=== PATIENT | male | born 1965 | race Caucasian/White ===

== ENCOUNTER 2018-03-30 10:24 | Emergency (ER) | payer BC ==
[2018-03-30] MEDS ORDERED: Aspirin TAB* 325 MG PO ONE (10:51)
[2018-03-30] MEDS ORDERED: Fluticasone NASAL SPRAY 50MCG* 16 gm SPRAY BTL RIGHT NARE ONE (10:51)
[2018-03-30 11:16] LABS: ABS Basophils 0 10^3/ul (0-0.2); ABS Eosinophils 0 10^3/ul (0-0.6); ABS Monocytes 0.6 10^3/ul (0-0.8); ABS Neutrophils 3.4 10^3/ul (1.5-7.7); ABS Nucleated RBC 0 10^3/ul; Eosinophil % 0.3 % (0-6); Hematocrit 46 % (42-52); Hemoglobin 16.1 g/dl (14.0-18.0); Lymphocyte % 20.4 % (25-47); Mean Corpuscular HGB Conc 35 g/dl (31-36); Mean Corpuscular Hemoglobin 34 pg (27-31); Mean Corpuscular Volume 97 fL (80-94); Mean Platelet Volume 7.4 um3 (7.4-10.4); Nucleated Red Blood Cells % 0; Platelet Count 262 10^3/ul (150-450); Red Blood Count 4.76 10^6/ul (4.0-5.4); Red Cell Distribution Width 14 % (10.5-15)
[2018-03-30 11:33] LABS: EGFR Non-African American 101.9 (>60)
--- NOTE | 2018-03-30 12:24 | RAD ---
HISTORY: Chest pain COMPARISONS: None VIEWS: 1: frontal portable view of the chest at 11:40 AM FINDINGS: LINES AND TUBES: None. CARDIOMEDIASTINAL SILHOUETTE: The cardiomediastinal silhouette is normal for portable technique. PLEURA: The costophrenic angles are sharp. No pleural abnormalities are noted. LUNG PARENCHYMA: The lungs are clear. ABDOMEN: The upper abdomen is clear. There is no subphrenic gas. BONES AND SOFT TISSUES: No bone or soft tissue abnormalities are noted. IMPRESSION: NO ACTIVE CARDIOPULMONARY DISEASE.
--- NOTE | 2018-03-30 13:13 | ED ---
Ariel Rivers Jennifer, scribed for Hero Boone MD on 03/30/18 at 1039 . HPI Chest Pain - HPI Summary HPI Summary: The patient is a 53 year old male who presents with left-sided chest pain six months ago. The pain is constant and feels like a sharp needle. The patient denies the pain radiates anywhere. He states it has been hard to catch his breath when hes lying down for three months. The patient states the pain hasn t changed, but he decided to come to the ED today after his mom suggested it a few days ago. He denies abdominal pain and leg swelling. The patient additionally complains of a sinus infection that [employer] had for 10 years. The patient adds he was told he had a five-chamber heart when he was a teenager. - History of Current Complaint Chief Complaint: EDChestPainROMI Hx Obtained From: Patient Onset/Duration: Atraumatic, Still Present - Began about 6 months ago Timing: Constant Initial Severity: Mild Current Severity: None Pain Intensity: 0 Pain Scale Used: 0-10 Numeric Chest Pain Location: Left Anterior Chest Pain Radiates: No Character: Sharp/Stabbing Aggravating Factor(s): Position - Lying down worsens SOB Alleviating Factor(s): Nothing Associated Signs and Symptoms: Positive: Other: - chest pain, SOB - Allergy/Home Medications Allergies/Adverse Reactions: Allergies Allergy/AdvReac Type Severity Reaction Status Date / Time Penicillins Allergy Anaphylatic Verified 03/30/18 10:27 Shock Home Medications: Home Medications NK [No Home Medications Reported] 03/30/18 [History Confirmed 03/30/18] PMH/Surg Hx/FS Hx/Imm Hx Endocrine/Hematology History: Denies: Hx Diabetes, Other Endocrine/Hematological Disorders - Neg hx blood clots Cardiovascular History: Denies: Hx Hypertension Infectious Disease History: No Infectious Disease History: Denies: Hx Human Immunodeficiency Virus (HIV), Hx of Known/Suspected MRSA, Traveled Outside the [place] in Last 30 Days - Family History Known Family History: Positive: Other - Grandfather - stroke - Social History Alcohol Use: Daily Alcohol Amount: Few shots of rum every day Hx Tobacco Use: Yes Smoking Status (MU): Former Smoker Review of Systems ENT: Other - Sinus infection - 10 years Positive: Chest Pain Positive: Shortness Of Breath Negative: Abdominal Pain Negative: Edema All Other Systems Reviewed And Are Negative: Yes Physical Exam - Summary Physical Exam Summary: Appearance: Well-appearing, Well-nourished Skin: Warm Eyes: Normal ENT: Normal Neck: Supple, nontender Respiratory: Clear to auscultation Cardiovascular: Normal S1, S2. No murmurs. Normal distal pulses in tibial and radial bilaterally. Abdomen: Soft, nontender Musculoskeletal: Normal, Strength/ROM Intact Neurological: Normal, A&Ox3 Psychiatric: Normal General: No acute distress Triage Information Reviewed: Yes Vital Signs On Initial Exam: Initial Vitals Temp Pulse Resp BP Pulse Ox 97 F 73 16 155/105 98 03/30/18 10:27 03/30/18 10:27 03/30/18 10:27 03/30/18 10:27 03/30/18 10:27 Vital Signs Reviewed: Yes Diagnostics - Vital Signs Vital Signs Temp Pulse Resp BP Pulse Ox 03/30/18 10:27 97 F 73 16 155/105 98 - Laboratory Lab Results: Lab Results 03/30/18 03/30/18 03/30/18 Range/Units 11:03 11:03 11:03 WBC 5.0 (3.5-10.8) 10^3/ul RBC 4.76 (4.0-5.4) 10^6/ul Hgb 16.1 (14.0-18.0) g/dl Hct 46 (42-52) % MCV 97 H (80-94) fL MCH 34 H (27-31) pg MCHC 35 (31-36) g/dl RDW 14 (10.5-15) % Plt Count 262 (150-450) 10^3/ul MPV 7.4 (7.4-10.4) um3 Neut % (Auto) 66.9 (38-83) % Lymph % (Auto) 20.4 L (25-47) % Duchesne % (Auto) 11.6 H (0-7) % Eos % (Auto) 0.3 (0-6) % Baso % (Auto) 0.8 (0-2) % Absolute Neuts (auto) 3.4 (1.5-7.7) 10^3/ul Absolute Lymphs (auto) 1.0 (1.0-4.8) 10^3/ul Absolute Monos (auto) 0.6 (0-0.8) 10^3/ul Absolute Eos (auto) 0 (0-0.6) 10^3/ul Absolute Basos (auto) 0 (0-0.2) 10^3/ul Absolute Nucleated RBC 0 10^3/ul Nucleated RBC % 0 D-Dimer, Quantitative < 200 (Less Than 230) ng/mL Sodium 139 (139-145) mmol/L Potassium 4.0 (3.5-5.0) mmol/L Chloride 107 (101-111) mmol/L Carbon Dioxide 24 (22-32) mmol/L Anion Gap 8 (2-11) mmol/L BUN 17 (6-24) mg/dL Creatinine 0.80 (0.67-1.17) mg/dL Est GFR ( Amer) 131.1 (>60) Est GFR (Non-Af Amer) 101.9 (>60) BUN/Creatinine Ratio 21.3 H (8-20) Glucose 90 (70-100) mg/dL Calcium 9.4 (8.6-10.3) mg/dL Magnesium 2.0 (1.9-2.7) mg/dL Total Bilirubin 0.70 (0.2-1.0) mg/dL AST 18 (13-39) U/L ALT 12 (7-52) U/L Alkaline Phosphatase 91 (34-104) U/L Troponin I 0.00 (<0.04) ng/mL Total Protein 7.0 (6.4-8.9) g/dL Albumin 4.2 (3.2-5.2) g/dL Globulin 2.8 (2-4) g/dL Albumin/Globulin Ratio 1.5 (1-3) Result Diagrams: 03/30/18 11:03 03/30/18 11:03 Lab Statement: Any lab studies that have been ordered have been reviewed, and results considered in the medical decision making process. - Radiology CXR Xray Interpretation: No Acute Changes - NO ACTIVE CARDIOPULMONARY DISEASE. Dr. Boone has reviewed this report. Radiology Interpretation Completed By: Radiologist - EKG 1055 Cardiac Rate: Bradycardia EKG Rhythm: Sinus Bradycardia - [address] Segment: Non-Specific - Slightly peaked T waves, will evaluate Chest Pain Course/Dx - Course Assessment/Plan: Symptoms improved here in the emergency department, EKG and chest x-ray and labs within normal limits. Patient given nasal spray for possible right-sided sinus congestion. I instructed Mr. Cuellar to make an appointment to see a air moving technician promptly and follow-up with an ENT doctor for his sinus symptoms. He is feeling better here in the ED, not short of breath, no chest pain currently, and agrees to understands discharge instructions. - Diagnoses Provider Diagnoses: Chest pain Discharge - Sign-Out/Discharge Documenting (check all that apply): Discharge/Admit/Transfer - Discharge Plan Condition: Improved Disposition: HOME Patient Education Materials: Chest Pain (ED) Referrals: No Primary Care Phys,NOPCP [Primary Care Provider] - Uvaldo Webb MD [Medical Doctor] - Hector Lorenz MD [Medical Doctor] - Lauren Arcos [Medical Doctor] - TOMASA JAY [Medical Doctor] - Luis Alberto Fernandez MD [Medical Doctor] - Additional Instructions: PLEASE MAKE AN APPOINTMENT FIRST THING IN THE MORNING TO BE SEEN BY A ASSOCIATE ATTORNEY AND ENT DOCTOR WITHIN 1-2 WEEKS PLEASE RETURN TO THE EMERGENCY ROOM IF YOU HAVE ANY WORSENING OR CONCERNING SYMPTOMS PLEASE MAKE AN APPOINTMENT FIRST THING IN THE MORNING TO BE SEEN BY YOUR PRIMARY CARE DOCTOR WITHIN 1 WEEK - Billing Disposition and Condition Condition: IMPROVED Disposition: HOME The documentation as recorded by the Ariel zuluaga Jennifer accurately reflects the service I personally performed and the decisions made by me, Hero Boone MD.
[2018-03-30 13:59] VITALS: BP 134/95
== END 2018-03-30 13:58 | disposition home or self-care (01) ==
LOC: ED 10:24
DX: R07.9 Chest pain, unspecified (principal); Z87.891 Personal history of nicotine dependence; Z88.0 Allergy status to penicillin
CPT/HCPCS: 36415; 71045; 80053; 83735; 84484; 85025; 85379; 93005; 99283

== ENCOUNTER 2018-07-10 10:07 | Day surgery (SDC) | payer BC ==
[~2018-07-10 10:07] MED LIST: Buffered Lidocaine 0.9% SYRIN* 5 ML/SYR SYRINGE INTRADERM ONE; Sodium Citrate/Citric Acid* 15 ML UDC ONE; Sodium Citrate/Citric Acid* 15 ML UDC PO ONE
[2018-07-10] MEDS ORDERED: Midazolam* 1 MG/ML 2 ML VIAL (2 MG) ONE (11:53)
[2018-07-10] MEDS ORDERED: fentaNYL* 50 MCG/ML 2 ML VIAL (100 MCG VIAL) ONE ×3 (11:53→14:30)
[2018-07-10] MEDS ORDERED: Propofol* 10 MG/ML 20 ML BTL IV PUSH ONE ×2 (11:54→13:53)
[2018-07-10] MEDS ORDERED: Lidocaine 2% PF* 10 ML AMP ONE (11:54)
[2018-07-10] MEDS ORDERED: Gelatin ADSORBABLE (OPHTH)* OPHTH.FILM ONE ×2 (11:54→13:35)
[2018-07-10] MEDS ORDERED: Dexamethasone IV* 4 MG/ML 1 ML (4 MG) ONE (11:54)
[2018-07-10] MEDS ORDERED: Triamcinolone Acetonide* 40 MG/ML 1 ML VIAL ONE (11:54)
[2018-07-10] MEDS ORDERED: Gelfoam 12-7 ADSORBABL SPONGE* 1 EA SPONGE ONE ×2 (11:54→13:35)
[2018-07-10] MEDS ORDERED: Oxymetazoline 0.05% NASAL SPR* 15 ML BTL ONE ×2 (12:04→12:59)
[2018-07-10] MEDS ORDERED: Cisatracurium* 2 MG/ML MDV 5 ML ONE (12:27)
[2018-07-10] MEDS ORDERED: Lidocaine 1% MPF wEPI 200,000* 30 ML SDV ONE (12:43)
[2018-07-10] MEDS ORDERED: Ondansetron INJ* 2 MG/ML VIAL IV PRN (13:20)
[2018-07-10] MEDS ORDERED: Naloxone* 0.4 MG/ML 1 ML VIAL IV PRN (13:20)
[2018-07-10] MEDS ORDERED: hydrALAZINE IV* 20 MG/ML VIAL ONE ×3 (13:46→16:08)
[2018-07-10] MEDS ORDERED: Labetalol IV* 5 MG/ML 20 ML VIAL ONE (13:46)
[2018-07-10] MEDS ORDERED: Neostigmine Methylsulfate* 1 MG/ML 10 ML VIAL (1 mg/ml) ONE (13:53)
[2018-07-10] MEDS ORDERED: Glycopyrrolate IV* 0.2 MG/ML 1 ML VIAL ONE (13:53)
[2018-07-10] MEDS: fentaNYL* 50 MCG/ML 2 ML VIAL (100 MCG VIAL) IV PRN ×4 (14:30→14:55)
[2018-07-10] MEDS ORDERED: HYDROcodone/ACETAMIN 5-325 MG* 1 TAB ONE (14:58)
[2018-07-10] MEDS ORDERED: Docusate CAP* 100 MG PO ONE (16:00)
[2018-07-10 16:11] VITALS: BP 150/96
--- NOTE | 2018-07-10 21:34 | OP ---
DATE OF OPERATION: 07/10/18 - [facility] DATE OF : 69 SURGEON: Luis Alberto Fernandez MD PRE-OP DIAGNOSIS: Pansinusitis. POST-OP DIAGNOSIS: Pansinusitis. OPERATIVE PROCEDURE: Bilateral video endoscopic maxillary antrostomy and removal of tissues, bilateral anterior and posterior ethmoidectomy, bilateral frontal duct dilatation and removal of polypoidal tissue, bilateral sphenoid sinusotomy. BRIEF HISTORY: This 53-year-old gentleman with pansinusitis having been treated with nasal steroids, oral steroids, and frequent antibiotics without improvement, continued symptoms of nasal obstruction. CT scan shows extensive pansinusitis. DESCRIPTION OF PROCEDURE: The patient was taken to the operating room. General anesthetic was given, the patient was intubated. Previously obtained CT scans were used in a technique of [employer] image guidance navigation. Subsequently, 0-degree telescope, 30-degree telescope, and other endoscopic sinus surgery instruments including the balloon were utilized. We first turned our attention to the left side. The nasal mucosa was infiltrated in the region of the polyps in middle turbinate lateral nasal wall with 2% lidocaine with epinephrine. A total of 5 cc to use it on both sides. Polypectomy was carried out using microshaver. The uncinate process was identified and resected out using a micro-shaver. The antrostomy was then slowly enlarged. Large amounts of polypoidal mucosa was removed from the antrum. We then turned our attention to the nasofrontal duct area and guidewire with balloon was placed into the nasofrontal duct and dilatation was carried out. Copious irrigation of the frontal sinus was carried out. We then proceeded to using an image guidance and navigation to resect out the ethmoidal bulla both laterally and towards lamina propria, supposedly towards the posterior cells and resecting out posterior cells carefully until the sphenoid front face was identified. The sphenoid was then entered and polypoidal material was removed from there. The area was packed on the left side with Gelfoam with a spacer between the middle turbinate lateral nasal wall. On the right side, again the polyps were removed with microshaver and uncinate process was peeled out anteriorly and then micro shaved away. The antrostomy was widened and polypoidal material was suctioned out and micro shaved away. We then turned our attention towards the ethmoidal resection and the ethmoidal bulla and then coursing superiorly, posteriorly, and inferiorly towards the sphenoid front face and then this was opened up coursing from the sphenoid front face up to the nasofrontal duct. I think I possibly may have had a small CSF leak. Identifying this possibility, I watched it for a while. There was a little bit of liquid without any significant other abnormalities. I packed the area with Surgicel which was then soaked with duraseal. Small Grey packs were then placed. These were soaked with Afrin and subsequently with Kenalog. Once this was done, the patient was awakened, extubated, and sent to recovery room in stable condition. Instrument and sponge count correct. Blood loss minimal. COMPLICATIONS: Possible CSF leak, right side. [id number]/[facility] #: [id number] [facility] HOSPITALJonathan
== END 2018-07-10 16:44 | disposition home or self-care (01) ==
LOC: OR 10:07
PROVIDERS: ATTEND Otolaryngology
DX: J32.4 Chronic pansinusitis (principal); Z87.891 Personal history of nicotine dependence
CPT/HCPCS: 88305; A9270-GY; J0360; J1100; J2001; J2250; J2704; J2710; J3010; J3301